=== PATIENT | female | born 1975 | race Hispanic/Latino ===

== ENCOUNTER 2022-06-23 21:15 | Emergency (ER) | payer BC ==
[~2022-06-23] VITALS: Ht 157.5 cm; Wt 70.3 kg
[2022-06-23] MEDS ORDERED: ALBUTEROL INHALER 90MCG/INH IH ONE (21:30)
[2022-06-23] MEDS ORDERED: ACETAMINOPHEN 500 MG TABLET PO ONE (21:30)
[2022-06-23] MEDS ORDERED: IBUPROFEN 800 MG TAB PO ONE (21:30)
[2022-06-23] MEDS ORDERED: GUAIFENESIN-CODEINE 5 ML SYRUP PO ONE (21:30)
[2022-06-23] MEDS ORDERED: ALBU8.5H8 IH (22:24)
[2022-06-23] MEDS ORDERED: IBUP-2071 PO (22:24)
[2022-06-23] MEDS ORDERED: D-ME1POW16 PO (22:24)
[2022-06-23] MEDS ORDERED: ACET-2247 PO (22:24)
[2022-06-23 22:29] VITALS: BP 125/82
== END 2022-06-23 22:36 | disposition home or self-care (01) ==
LOC: EDH 21:15
DX: U07.1 COVID-19 (principal); J06.9 Acute upper respiratory infection, unspecified; E78.00 Pure hypercholesterolemia, unspecified; E11.9 Type 2 diabetes mellitus without complications; Z79.1 Long term (current) use of non-steroidal anti-inflammatories (NSAID)
CPT/HCPCS: 99283; 71045; 87635; 87804 ×2; C9803

== ENCOUNTER → 2023-05-11 | Outpatient (CLI) | payer BC ==
[~2023-05-11] MED LIST: ACET-2247 PO; ALBU8.5H8 IH; D-ME1POW16 PO; IBUP-2071 PO
== END | disposition home or self-care (01) ==
LOC: RAH 08:39
PROVIDERS: ATTEND Family Medicine
DX: Z12.31 Encounter for screening mammogram for malignant neoplasm of breast (principal)
CPT/HCPCS: 77067